=== PATIENT | female | born 1930 | race Caucasian/White ===

== ENCOUNTER 2016-04-28 18:08 | Emergency (ER) | payer OTHER ==
--- NOTE | 2016-04-28 22:32 | ED NURSING NOTES ---
Clinical Report - Nurses [facility] [address] [place] [address] 04/28/2016 18:08 Patient: TANIYA AUSTIN TRIAGE Triage time 18:20. Acuity: LEVEL 4. Chief Complaint: NAUSEA and DIARRHEA. Alert. No acute distress. AWILDA COMA SCORE: [place] Coma Scale: 15- eyes open spontaneously (4); best verbal response- oriented x 4 (5); best motor response- obeys commands (6). --18:39 Jennifer Abebe R.N. 18:20 04/28/16. BP: 130/60. HR: 59. RR: 18. O2 saturation: 95% on room air. Temp: 98.6 F (oral). Pain level now: 09/26. --18:39 Jennifer Abebe R.N. Weight: 68 kg stated. Height/Length: 64 inches Per Patient. BMI: 25.8. --18:26 Jennifer Abebe R.N. Medications Allopurinol Oral 200 mg, daily. Alphagan P Ophthalmic. --18:34 Jennifer Abebe R.N. Diltiazem HCl Oral 240 mg, daily. Gabapentin Oral 100 mg, at bedtime. Hydrocodone-Acetaminophen Oral 5 mg, as needed. Lasix Oral 40 mg, daily. Latanoprost Ophthalmic (Solution 0.005 %) 1 drop, HS (both eyes). Levothyroxine Sodium Oral 137mcg, daily. Loperamide HCl Oral 2 mg, as needed. Loratadine Oral 10 mg, daily. Losartan Potassium Oral 100 mg, daily. --18:34 Jennifer Abebe R.N. MetFORMIN HCl Oral (Tablet 500 mg), daily. Metoprolol Tartrate Oral 100 mg, 2 times daily. Omeprazole Oral 20 mg, daily. PredniSONE Oral 2.5 mg, daily. Probiotic Daily Oral. --18:34 Jennifer Abebe R.N. MetFORMIN HCl Oral 500 mg, 2x a day. --18:34 Jennifer Abebe R.N. Sertraline HCl Oral (Tablet 100 mg) 1 tablet, daily. --18:35 Jennifer Abebe R.N. Atorvastatin Calcium Oral (Tablet 40 mg), daily. --18:35 Jennifer Abebe R.N. Acetaminophen Oral 325 mg, PRN. --18:36 Jennifer Abebe R.N. Antacid Anti-Gas Oral (Suspension 200-200-20 mg/5mL) 30 ml, as needed. --18:37 Jennifer Abebe R.N. Bisac-Evac Rectal (Suppository 10 mg), as needed. --18:38 Jennifer Abebe R.N. Milk of Magnesia Oral 30 ml, as needed. --18:38 Jennifer Abebe R.N. Pepto-Bismol Oral, PRN (liquid or chews). --18:39 Jennifer Abebe R.N. Allergies Codeine. Colchicine. GlipiZIDE. HCTZ. LIsinopril. Methotrexate. Sulfa Antibiotics. --18:22 Jennifer Abebe R.N. History Arrived by private vehicle. Historian: patient. Accompanied by family. Primary physician (Cesar). Onset. (about 3 days). ( recurrent issue for about 3 years, states her doctor sent her to get "fluids" so she doesn't dehydrate). SOCIAL HX: Smoker- current status unknown (no). No alcohol use or drug use. LEARNING NEEDS ASSESSMENT: The learning needs assessment revealed no barriers. FALL RISK ASSESSMENT: Fall risk assessment completed. Risk factors identified include patient impairment of mobility. Fall interventions initiated. Patient placed in wheelchair. FUNCTIONAL ASSESSMENT: Functional assessment performed: requires assistance with the activities of daily living; uses walker- this mobility impairment is an ongoing problem. --18:39 Jennifer Abebe R.N. PROBLEMS: Back Pain. Heart Disease. Ckd. Meniere's Syndrome. Lichen sclerosus et atrophicus. Anxiety Reaction. Depression. Adenomas. Spinal Stenosis. Nephrolithiasis. Diabetes Mellitus Type 2. Hypertension. Coronary Artery Disease. --18:23 Jennifer Abebe R.N. ADDITIONAL SURGERIES: Cholecystectomy. Sinus Surgery. --18:23 Jennifer Abebe R.N. Assessment GENERAL / NEURO / PSYCH: Alert. Appears in no acute distress. Patient appears calm and cooperative. RESPIRATORY: Respirations not labored. SKIN: Skin is warm and dry. --18:39 Jennifer Abebe R.N. Interventions ID and allergy band on patient. To waiting room. --18:39 Jennifer Abebe R.N. PHYSICAL ASSESSMENT Ambulatory to room. GENERAL / NEURO / PSYCH: Oriented X 4. Appears in no acute distress. RESPIRATORY: Respirations not labored. CVS: Capillary refill less than 2 seconds. SKIN: Skin is warm and dry. --22:49 Connie Esquivel R.N. GI / : The patient has had nausea (resolved). Abdomen soft. --22:50 Connie Esquivel R.N. NURSING PROGRESS NOTES 20:15 04/28/16. BP: 148/50. HR: 86. RR: 18. O2 saturation: 100%. --20:17 Connie Esquivel R.N. 19:48 04/28/2016 Started bag #1 1000 mL IV Fluids IV NS (Saline); at 1000 mL/hr over 1 hour(s) via site #1. Completed per protocol. --20:44 Connie Esquivel R.N. 20:40 04/28/2016 Site #1 started via IV in the left antecubital space with an 20g angiocath; one attempt. Blood drawn: rainbow set. Labeled in the presence of the patient and sent to the lab. Saline lock flushed with 5 mL saline. --20:44 Connie Esquivel R.N. ( Pt assisted to restroom in by [employer], pt assisted in restroom for a clean catch specimen by pt's caregiver). --20:54 Milo Harrison 21:00 04/28/2016 IV Fluids IV NS Discontinued: bag #1 infused. Total amount infused: 1000 mL. --22:27 Connie Esquivel R.N. DISPOSITION / DISCHARGE Condition at departure: improved and stable. No learning barriers present. Reviewed medication(s). Written instructions provided in Guamanian. Caregiver verbalized understanding. The patient was discharged by the physician. She was discharged home. She left the Emergency Department ambulatory and via private vehicle. --22:51 Connie Esquivel R.N. 22:50 04/28/16. BP: 133/49. HR: 62. RR: 18. O2 saturation: 96%. Pain level now 0/10. --22:51 Connie Esquivel R.N. Departure time: 22:38 Apr 28 2016. --23:02 Connie Esquivel R.N. Locked/Released at 04/28/2016 23:02 by Connie Esquivel R.N.
--- NOTE | 2016-04-28 22:32 | ED ORDER SUMMARY ---
..... Patient: TANIYA AUSTIN OrderSheet [facility] VisitID: [id number] [address] [place] [address] 85y, F Registration Date/Time: 04/28/2016 ORDER SHEET Weight: 68.0 kg (stated) Allergies: Codeine, Colchicine, GlipiZIDE, HCTZ, LIsinopril, Methotrexate, Sulfa Antibiotics GENERAL ORDERS: CBC w Diff Urgent (20:31 04/28/2016 Fasutino Doan) (Ack 20:32 [facility] Electrical Maintenance Worker) (20:44 SBalde R.N.) CMP Urgent (20:31 04/28/2016 Faustino Doan) (Ack 20:32 [facility] Electrical Maintenance Worker) (20:44 SBalde R.N.) UA-Culture if indicated Urgent (20:31 04/28/2016 Faustino Doan) (Ack 20:32 [facility] Electrical Maintenance Worker) (21:08 SBalde R.N.) MEDICATION ORDERS: Bentyl PO 20 mg (NOW) (20:49 04/28/2016 Faustino Doan) (Ack 21:21 SBalde R.N.) IV FLUIDS: IV NS : initial bolus none -, then 1000 mL/hr for X1 (NOW) (20:30 04/28/2016 Faustino Doan) (20:44 SBalde R.N.) Zofran IV 4 mg (NOW) (20:49 04/28/2016 Faustino Doan) (Ack 21:21 SBalde R.N.) ORDER SHEET NOTES: [Electronically signed by Connie Esquivel R.N. (23:04/28/2016)] [Electronically signed by Javid Haro MD (10:05 04/30/2016)] [Electronically locked/signed by Connie Esquivel R.N. (23:04/28/2016)]
--- NOTE | 2016-04-28 22:32 | ED ORDER SUMMARY ---
..... Patient: TANIYA AUSTIN OrderSheet [facility] VisitID: [id number] [address] [place] [address] 85y, F Registration Date/Time: 04/28/2016 ORDER SHEET Weight: 68.0 kg (stated) Allergies: Codeine, Colchicine, GlipiZIDE, HCTZ, LIsinopril, Methotrexate, Sulfa Antibiotics GENERAL ORDERS: CBC w Diff Urgent (20:31 04/28/2016 Faustino Doan) (Ack 20:32 [facility] Deckhand) (20:44 SBalde R.N.) CMP Urgent (20:31 04/28/2016 Faustino Doan) (Ack 20:32 [facility] Deckhand) (20:44 SBalde R.N.) UA-Culture if indicated Urgent (20:31 04/28/2016 Faustino Doan) (Ack 20:32 [facility] Deckhand) (21:08 SBalde R.N.) MEDICATION ORDERS: Bentyl PO 20 mg (NOW) (20:49 04/28/2016 Faustino Doan) (Ack 21:21 SBalde R.N.) IV FLUIDS: IV NS : initial bolus none -, then 1000 mL/hr for X1 (NOW) (20:30 04/28/2016 Faustino Doan) (20:44 SBalde R.N.) Zofran IV 4 mg (NOW) (20:49 04/28/2016 Faustino Doan) (Ack 21:21 SBalde R.N.) ORDER SHEET NOTES: [Electronically signed by Connie Esquivel R.N. (23:04/28/2016)] [Electronically signed by Javid Haro MD (10:05 04/30/2016)] [Electronically locked/signed by Connie Esquivel R.N. (23:04/28/2016)]
--- NOTE | 2016-04-28 22:32 | ED CLINICAL REPORT ---
Clinical Report - Physicians/Mid Levels [facility] [address] [place] [address] 04/28/2016 18:08 Patient: TANIYA AUSTIN Time Seen: 20:30; initial patient contact. Arrived- By private vehicle. Historian- patient. CPT: ER phys charges level 4 (#002093). HISTORY OF PRESENT ILLNESS Chief Complaint: DIARRHEA. This started about 3 days ago and is still present (persistent). It was abrupt in onset. The patient has had nausea and abdominal pain. No vomiting, black stools or bloody stools. She has had moderate diarrhea. This has occurred several times. It has been watery. No bloody diarrhea. Has not recently been on antibiotics. The illness is described as moderate. Similar symptoms previously: None. Recent medical care: Not recently seen/assessed. REVIEW OF SYSTEMS No fever, difficulty with urination, dark urine, dizziness or sore throat. No cough, chest pain, difficulty breathing, excessive urination or skin rash. No fainting episodes. All systems otherwise negative, except as recorded above. PAST HISTORY Heart Disease. Diabetes Mellitus. Ckd. Meniere's Syndrome. Lichen sclerosus et atrophicus. Anxiety Reaction. Depression. Adenomas. Spinal Stenosis. Nephrolithiasis. Diabetes Mellitus Type 2. Hypertension. Coronary Artery Disease. Additional Surgeries: Cholecystectomy. Sinus Surgery. Allergies: Codei. Codeine. Colchicine. GlipiZIDE. HCTZ. LIsinopril. Methotrexate. Sulfa Antibiotics. SOCIAL HISTORY Never smoker. No alcohol use or drug use. ADDITIONAL NOTES The nursing notes have been reviewed with agreement regarding the chief complaint, PMH and patient medications and allergies. PHYSICAL EXAM Vital Signs: 04/28/2016 18:20 BP: 130/60. HR: 59. RR: 18. O2 saturation: 95%. Temp: 98.6 F. Pain level now: 7/10. Have been reviewed. Blood pressure normal. Bradycardic. Respiratory rate normal. Temperature normal. Oxygen saturation normal. Appearance: Alert. Oriented X3. No acute distress. Eyes: Eyes normal inspection. ENT: Dry mucous membranes present. CVS: Normal heart rate and rhythm. Heart sounds normal. Respiratory: No respiratory distress. Breath sounds normal. Abdomen: Soft. Mild tenderness diffusely. No guarding. Bowel sounds normal. No organomegaly. No mass. Back: No CVA tenderness. Skin: Poor skin turgor. Extremities: No lower extremity edema. Neuro: Oriented X 3. LABS, X-RAYS, AND EKG Laboratory Tests: UA-Culture if indicated: (NEFTALY: 04/28/2016 21:00) ( [facility] 04/28/2016 21:11) IP Test Result Flag Units (Reference) URINE COLOR LIGHT YELLOW URINE APPEARANCE CLEAR URINE GLUCOSE NEGATIVE (NEGATIVE) URINE BILIRUBIN NEGATIVE (NEGATIVE) URINE KETONE NEGATIVE (NEGATIVE) URINE SPECIFIC GRAVITY <= 1.005 L (1.010-1.030) URINE PH 5.5 (5.0-8.0) URINE PROTEIN TRACE (NEGATIVE) URINE UROBILINOGEN 0.2 EU/dL (0.2-1.0) URINE NITRITE NEGATIVE (NEGATIVE) URINE BLOOD NEGATIVE (NEGATIVE) URINE LEUK ESTERASE NEGATIVE (NEGATIVE) CBC w Diff: (NEFTALY: 04/28/2016 19:43) ( [facility] 04/28/2016 20:52) Final results Test Result Flag Units (Reference) WHITE BLOOD COUNT 14.6 H K/uL (4.5-11.5) RED BLOOD COUNT 3.77 L M/uL (4.00-5.20) HEMOGLOBIN 10.0 L gm/dL (12.0-16.0) HEMATOCRIT 30.5 L % (36.0-46.0) MEAN CELL VOLUME 81 fL (80-100) MEAN CORPUSCULAR HGB 26 pg (26-34) MEAN CORPUSCULAR HGB CONC 33 g/dL (31-37) RED CELL DISTRIBUTION WIDTH 16.7 H % (11.6-14.8) PLATELET COUNT 331 K/uL (150-400) NEUTROPHIL % 74.2 % (50-75) LYMPH % 18.8 L % (25-40) MONO % 3.8 % (3-14) EOSINOPHIL % 2.9 % (0-4) BASOPHIL % 0.3 % (0-2) CMP: (NEFTALY: 04/28/2016 19:43) ( MsgRcvd 04/28/2016 21:10) Final results Test Result Flag Units (Reference) GLUCOSE 242 H mg/dL (70-110) BUN 42 H mg/dL (7-18) CREATININE 1.5 H mg/dL (0.6-1.3) Estimated GFR 34.91 mL/min Estimated GFR- 42.31 mL/min Note: Persistent reduction over 3 months in eGFR<60 mL/min/1.73 m2 defines CKD. Patients with eGFR values>=60 mL/min/1.73 m2 may also have CKD if evidence ofpersistent proteinuria. Additional information may be foundat www.kidney.org. SODIUM 141 mmol/L (136-145) POTASSIUM 4.2 mmol/L (3.5-5.1) CHLORIDE 104 mmol/L (98-107) CARBON DIOXIDE 24 mmol/L (21-32) CALCIUM 9.1 mg/dL (8.5-10.1) TOTAL PROTEIN 6.8 g/dL (6.4-8.2) ALBUMIN 3.2 L g/dL (3.3-5.0) BILIRUBIN, TOTAL 0.2 mg/dL (0.0-1.0) ALKALINE PHOSPHATASE 89 U/L (46-116) AST (SGOT) 12 L U/L (15-37) ALT (SGPT) 22 U/L (12-78) . PROGRESS AND PROCEDURES Course of Care: IV NS 1 liter 22:30 04/28/16. patient indicates she feels better and wants to go home. She has some nausea medicine at home. Discussed stopping her Lasix until her illness is over. Patient is stable. Symptoms better. Patient/family counseled. Disposition: Discharged. Condition: stable and improved. CLINICAL IMPRESSION Acute norovirus gastroenteritis. Moderate dehydration INSTRUCTIONS Drink plenty of fluids. (Stop lasix until illness is over.). Warnings: Further evaluation is necessary. GENERAL WARNINGS: Return or contact your physician immediately if your condition worsens or changes unexpectedly, if not improving as expected, or if other problems arise. Your Current Medications: STOP TAKING THE FOLLOWING MEDICATIONS: Lasix Oral : 40 mg daily. CONTINUE TAKING THE FOLLOWING MEDICATIONS: Acetaminophen Oral : 325 mg PRN. Allopurinol Oral : 200 mg daily. Alphagan P Ophthalmic. Antacid Anti-Gas Oral : Suspension 200-200-20 mg/5mL, 30 ml, prn. Atorvastatin Calcium Oral : Tablet 40 mg, daily. Bisac-Evac Rectal : Suppository 10 mg, prn. Diltiazem HCl Oral : 240 mg daily. Gabapentin Oral : 100 mg at bedtime. Hydrocodone-Acetaminophen Oral : 5 mg, prn. Latanoprost Ophthalmic : Solution 0.005 %, 1 drop HS, both eyes. Levothyroxine Sodium Oral : 137mcg daily. Loperamide HCl Oral : 2 mg, prn. Loratadine Oral : 10 mg daily. Losartan Potassium Oral : 100 mg daily. MetFORMIN HCl Oral : 500 mg 2x a day. MetFORMIN HCl Oral : Tablet 500 mg, daily. Metoprolol Tartrate Oral : 100 mg 2 times daily. Milk of Magnesia Oral : 30 ml, prn. Omeprazole Oral : 20 mg daily. Pepto-Bismol Oral : PRN, liquid or chews. PredniSONE Oral : 2.5 mg daily. Probiotic Daily Oral. Sertraline HCl Oral : Tablet 100 mg, 1 tablet daily. Prescription Medications: Zofran (orally disintegrating tablets) 4 mg: take 1 orally every 4 hours as needed for nausea and vomiting. Dispense ten (10). No refill. Substitution is permissible. Follow-up: Follow up with your doctor in two days if not better. Understanding of the discharge instructions verbalized by patient and family. (Electronically signed by Javid Haro MD 04/30/2016 10:05)
--- NOTE | 2016-04-30 10:06 | ED MED RECONCILIATION SUMMARY ---
Patient: TANIYA AUSTIN Medication Reconciliation Report [facility] VisitID: [id number] [address] [place] [address] 85y, F Registration Date/Time: 04/28/2016 Weight: 68.0 kg Height/Length: 64 in. BMI: 25.8 ALLERGIES: Codeine, Colchicine, GlipiZIDE, HCTZ, LIsinopril, Methotrexate, Sulfa Antibiotics The patient's Home Medications are listed below: STOP TAKING THE FOLLOWING MEDICATIONS: Lasix Oral 40 mg, daily CONTINUE TAKING THE FOLLOWING MEDICATIONS: Acetaminophen Oral 325 mg, PRN Allopurinol Oral 200 mg, daily Alphagan P Ophthalmic Antacid Anti-Gas Oral (200-200-20 mg/5mL) 30 ml Atorvastatin Calcium Oral (40 mg), daily Bisac-Evac Rectal (10 mg) Diltiazem HCl Oral 240 mg, daily Gabapentin Oral 100 mg, at bedtime Hydrocodone-Acetaminophen Oral 5 mg Latanoprost Ophthalmic (0.005 %) 1 drop, HS, both eyes Levothyroxine Sodium Oral 137mcg, daily Loperamide HCl Oral 2 mg Loratadine Oral 10 mg, daily Losartan Potassium Oral 100 mg, daily MetFORMIN HCl Oral 500 mg, 2x a day MetFORMIN HCl Oral (500 mg), daily Metoprolol Tartrate Oral 100 mg, 2 times daily Milk of Magnesia Oral 30 ml Omeprazole Oral 20 mg, daily Pepto-Bismol Oral, PRN, liquid or chews PredniSONE Oral 2.5 mg, daily Probiotic Daily Oral Sertraline HCl Oral (100 mg) 1 tablet, daily The source(s) of the original Home Medication information: Not obtained. The following Medications were given to the patient in the Emergency Department: IV NS IV Fluids bolus 0, then 1000 mL/hr, administered: 04/28/2016 7:48:00 PM The following Medications were prescribed to the patient: Zofran (orally disintegrating tablets) 4 mg: take 1 orally every 4 hours as needed for nausea and vomiting. Dispense ten (10). No refill. Substitution is permissible. -- Javid Haro MD
--- NOTE | 2016-04-30 10:06 | ED MED RECONCILIATION SUMMARY ---
Patient: TANIYA AUSTIN Medication Reconciliation Report [facility] VisitID: [id number] [address] [place] [address] 85y, F Registration Date/Time: 04/28/2016 Weight: 68.0 kg Height/Length: 64 in. BMI: 25.8 ALLERGIES: Codeine, Colchicine, GlipiZIDE, HCTZ, LIsinopril, Methotrexate, Sulfa Antibiotics The patient's Home Medications are listed below: STOP TAKING THE FOLLOWING MEDICATIONS: Lasix Oral 40 mg, daily CONTINUE TAKING THE FOLLOWING MEDICATIONS: Acetaminophen Oral 325 mg, PRN Allopurinol Oral 200 mg, daily Alphagan P Ophthalmic Antacid Anti-Gas Oral (200-200-20 mg/5mL) 30 ml Atorvastatin Calcium Oral (40 mg), daily Bisac-Evac Rectal (10 mg) Diltiazem HCl Oral 240 mg, daily Gabapentin Oral 100 mg, at bedtime Hydrocodone-Acetaminophen Oral 5 mg Latanoprost Ophthalmic (0.005 %) 1 drop, HS, both eyes Levothyroxine Sodium Oral 137mcg, daily Loperamide HCl Oral 2 mg Loratadine Oral 10 mg, daily Losartan Potassium Oral 100 mg, daily MetFORMIN HCl Oral 500 mg, 2x a day MetFORMIN HCl Oral (500 mg), daily Metoprolol Tartrate Oral 100 mg, 2 times daily Milk of Magnesia Oral 30 ml Omeprazole Oral 20 mg, daily Pepto-Bismol Oral, PRN, liquid or chews PredniSONE Oral 2.5 mg, daily Probiotic Daily Oral Sertraline HCl Oral (100 mg) 1 tablet, daily The source(s) of the original Home Medication information: Not obtained. The following Medications were given to the patient in the Emergency Department: IV NS IV Fluids bolus 0, then 1000 mL/hr, administered: 04/28/2016 7:48:00 PM The following Medications were prescribed to the patient: Zofran (orally disintegrating tablets) 4 mg: take 1 orally every 4 hours as needed for nausea and vomiting. Dispense ten (10). No refill. Substitution is permissible. -- Javid Haro MD
--- NOTE | 2016-04-30 10:06 | ED MAR SUMMARY ---
..... Medication Administration Record [facility] [address] [place] [address] Patient: TANIYA AUSTIN Visit ID: [id number] 85y, F Weight: 68.0 kg Height/Length: 64 in BMI: 25.8 ALLERGIES: Codeine, Colchicine, GlipiZIDE, HCTZ, LIsinopril, Methotrexate, Sulfa Antibiotics Start 19:48 04/28/2016 Connie Esquivel R.N., Stop 21:00 04/28/2016 Connie Esquivel R.N. Medication Administered: IV NS (SALINE), Dose: IV Fluids over 1 hour(s), Rate: 1000 mL/hr, Dispensed: 1000 mL bag, Site: #1. Medication Ordered: IV NS : initial bolus none -, then 1000 mL/hr for X1 (NOW).
--- NOTE | 2016-04-30 10:06 | ED MAR SUMMARY ---
..... Medication Administration Record [facility] [address] [place] [address] Patient: TANIYA AUSTIN Visit ID: [id number] 85y, F Weight: 68.0 kg Height/Length: 64 in BMI: 25.8 ALLERGIES: Codeine, Colchicine, GlipiZIDE, HCTZ, LIsinopril, Methotrexate, Sulfa Antibiotics Start 19:48 04/28/2016 Connie Esquivel R.N., Stop 21:00 04/28/2016 Connie Esquivel R.N. Medication Administered: IV NS (SALINE), Dose: IV Fluids over 1 hour(s), Rate: 1000 mL/hr, Dispensed: 1000 mL bag, Site: #1. Medication Ordered: IV NS : initial bolus none -, then 1000 mL/hr for X1 (NOW).
--- NOTE | 2016-04-30 10:06 | ED DISCHARGE INSTRUCTIONS ---
Patient: TANIYA AUSTIN General Instructions [facility] VisitID: [id number] [address] [place] [address] 85y, F Registration Date/Time: 04/28/2016 Acute norovirus gastroenteritis. Moderate dehydration INSTRUCTIONS Drink plenty of fluids. (Stop lasix until illness is over.). Warnings: Further evaluation is necessary. GENERAL WARNINGS: Return or contact your physician immediately if your condition worsens or changes unexpectedly, if not improving as expected, or if other problems arise. Your Current Medications: STOP TAKING THE FOLLOWING MEDICATIONS: Lasix Oral : 40 mg daily. CONTINUE TAKING THE FOLLOWING MEDICATIONS: Acetaminophen Oral : 325 mg PRN. Allopurinol Oral : 200 mg daily. Alphagan P Ophthalmic. Antacid Anti-Gas Oral : Suspension 200-200-20 mg/5mL, 30 ml, prn. Atorvastatin Calcium Oral : Tablet 40 mg, daily. Bisac-Evac Rectal : Suppository 10 mg, prn. Diltiazem HCl Oral : 240 mg daily. Gabapentin Oral : 100 mg at bedtime. Hydrocodone-Acetaminophen Oral : 5 mg, prn. Latanoprost Ophthalmic : Solution 0.005 %, 1 drop HS, both eyes. Levothyroxine Sodium Oral : 137mcg daily. Loperamide HCl Oral : 2 mg, prn. Loratadine Oral : 10 mg daily. Losartan Potassium Oral : 100 mg daily. MetFORMIN HCl Oral : 500 mg 2x a day. MetFORMIN HCl Oral : Tablet 500 mg, daily. Metoprolol Tartrate Oral : 100 mg 2 times daily. Milk of Magnesia Oral : 30 ml, prn. Omeprazole Oral : 20 mg daily. Pepto-Bismol Oral : PRN, liquid or chews. PredniSONE Oral : 2.5 mg daily. Probiotic Daily Oral. Sertraline HCl Oral : Tablet 100 mg, 1 tablet daily. Prescription Medications: Zofran (orally disintegrating tablets) 4 mg: take 1 orally every 4 hours as needed for nausea and vomiting. Dispense ten (10). No refill. Substitution is permissible. Follow-up: Follow up with your doctor in two days if not better. Understanding of the discharge instructions verbalized by patient and family. ADDITIONAL INFORMATION Viral Gastroenteritis (6Yr-Adult) Gastroenteritis is another name for thestomach flu.It is most often caused by a virus that affects the stomach and intestinal tract. Symptoms include stomach cramping and fever, vomiting and/or diarrhea, and can last from 2 to 7 days. The danger from repeated vomiting or diarrhea is dehydration. This is the loss of too much water and minerals from the body. When this occurs, body fluids must be replaced. Antibiotics are not effective for this illness, but simple home treatment will be helpful. Home Care If symptoms are severe, rest at home for the next 24 hours. Avoid tobacco, caffeine, and alcohol use, which can worsen symptoms. Acetaminophen (Tylenol) or ibuprofen (Motrin, Advil) may be usedfor fever or pain unless another medication was prescribed. NOTE: If you have chronic liver or kidney disease or ever had a stomach ulcer or GI bleeding, talk with your doctor before using these medicines. Aspirin should never be used in anyone under 18 years of age who is ill with a fever. It may cause severe liver damage. If medicines for diarrhea or vomiting were prescribed, be sure they are takenonly as directed. If vomiting, drink small amounts of clear fluids (such as water, sports drinks, clear sodas) at frequent intervals to prevent dehydration. Start with 1 to 2 tablespoons every 10 minutes. Once vomiting stops, follow these guidelines: During The First 12 To 24 Hours follow the diet below: Beverages: Sport drinks like Gatorade, soft drinks without caffeine; kvng martha, mineral water (plain or flavored), decaffeinated tea and coffee. Soups: Clear broth, consomm and bouillon Desserts: Plain gelatin (Jell-O), Popsicles and fruit juice bars. During The Next 24 Hours you may add the following to the above: Hot cereal, plain toast, bread, rolls, crackers Plain noodles, rice, mashed potatoes, chicken noodle or rice soup Unsweetened canned fruit (avoid pineapple), bananas Limit fat intake to less than 15 grams per day by avoiding margarine, butter, oils, mayonnaise, sauces, gravies, fried foods, peanut butter, meat, poultry, and fish. Limit fiber; avoid raw or cooked vegetables, fresh fruits (except bananas), and bran cereals. Limit caffeine and chocolate. Do not use spices or seasonings except salt. During The Next 24 Hours The patient can gradually resume a normal diet as symptoms lessen. Preventing Spread Hand washing with soap and water is the best way to prevent the spread of viruses. Caregivers should wash their hands before andafter touching the sick person. The sick person, as well as everyone in the family,should wash their hands after using the toilet and before meals. Clean the toilet after each use. People with diarrhea should not prepare food for others. If you are preparing your own foods, wash your hands before and after. Follow Up with your doctor as advised. Call your doctor if you are not improving over the next 2 to 3 days. If a stool (diarrhea) sample was taken, you may call in 2 days (or as directed) for the results. Get Prompt Medical Attention if any of the following occur: Increasing abdominal pain Continued vomiting (unable to keep liquids down) Frequent diarrhea (more than 5 times a day) Blood in vomit or stool (black or red color) Dark urine, reduced urine output, or extreme thirst Weakness, dizziness, fainting Drowsiness, confusion, stiff neck, or seizure Fever of 100.4F (38C) oral or higher, not better with fever medication New rash Dehydration (Adult) Dehydration occurs when your body loses too much fluid. This may be the result of vomiting a lot or from diarrhea,sweating a lot, or a high fever. It may also happen if you dont drink enough fluid when youre sick. Misuse of diuretics (water pills) can also be a cause. Symptoms include thirst and feeling dizzy, weak, fatigued, or very drowsy. The diet described below is usually enough to treat most cases. Sometimes you may needmedicine. Home Care Follow these guidelines for home care: Drink at least 12 8-ounce glasses of fluid every day to overcome the dehydration. Fluid may include water; orange juice; lemonade; apple, grape, and cranberry juice; clear fruit drinks; electrolyte replacement and sports drinks; and teas and coffee without caffeine. If you have been diagnosed with a kidney disease, ask your doctor how much and what types of fluids you should drink to prevent dehydration. If you have kidney disease, drinking too much fluid can cause it build up in the your body and be dangerous to your health. If you have fever, muscle aching, or headache from a viral syndrome, you may useacetaminophen or ibuprofen, unless another medicine was prescribed for this.If you have chronic liver or kidney disease or ever had a stomach ulcer or GI bleeding, talk with your doctor before using these medicines. Don't take aspirin if you are younger than 18 and are ill with a fever.Aspirin raises the chance forsevere liver injury. Follow-up care Follow up with your health care provider if you don't get better in the next 24 to 48 hours. When to seek medical care Get prompt medical attention if any of theseoccur: Continued vomiting (cant keep liquids down) Frequent diarrhea (more than 5 times a day); blood (red or black color) or mucus in diarrhea Blood in vomit or stool Swollen abdomen or increasing abdominal pain Weakness, dizziness, or fainting Unusually drowsy or confused Reduced urine output or extreme thirst Fever of 100.4 F (38 C) oral or higher that does not get better with fever medication Ondansetron Oral disintegrating tablet What is this medicine? ONDANSETRON (on DEEP se larry) is used to treat nausea and vomiting caused by chemotherapy. It is also used to prevent or treat nausea and vomiting after surgery. How should I use this medicine? These tablets are made to dissolve in the mouth. Do not try to push the tablet through the foil backing. With dry hands, peel away the foil backing and gently remove the tablet. Place the tablet in the mouth and allow it to dissolve, then swallow. While you may take these tablets with water, it is not necessary to do so. Talk to your control engineer regarding the use of this medicine in children. Special care may be needed. What side effects may I notice from receiving this medicine? Side effects that you should report to your doctor or health childcare teacher as soon as possible: allergic reactions like skin rash, itching or hives, swelling of the face, lips, or tongue breathing problems dizziness fast or irregular heartbeat feeling faint or lightheaded, falls fever and chills swelling of the hands and feet tightness in the chest Side effects that usually do not require medical attention (report to your doctor or health childcare teacher if they continue or are bothersome): constipation or diarrhea headache What may interact with this medicine? Do not take this medicine with any of the following medications: -apomorphine -cisapride -dofetilide -dronedarone -pimozide -thioridazine -ziprasidone This medicine may also interact with the following medications: -carbamazepine -phenytoin -rifampicin -tramadol -other medicines that prolong the QT interval (cause an abnormal heart rhythm) What if I miss a dose? If you miss a dose, take it as soon as you can. If it is almost time for your next dose, take only that dose. Do not take double or extra doses. Where should I keep my medicine? Keep out of the reach of children. Store between 2 and 30 degrees C (36 and 86 degrees F). Throw away any unused medicine after the expiration date. What should I tell my health care provider before I take this medicine? They need to know if you have any of these conditions: heart disease history of irregular heartbeat liver disease low levels of magnesium or potassium in the blood an unusual or allergic reaction to ondansetron, granisetron, other medicines, foods, dyes, or preservatives or trying to get breast-feeding What should I watch for while using this medicine? Check with your doctor or health childcare teacher as soon as you can if you have any sign of an allergic reaction. You have been given the following additional information: Gastroenteritis, Viral (6Y-Adult) Dehydration (Adult) Ondansetron Oral disintegrating tablet (Electronically signed by Javid Haro MD 04/30/2016 10:05)
== END 2016-04-28 22:38 | disposition home or self-care (01) ==
LOC: ED SRH 18:08
DX: A08.11 Acute gastroenteropathy due to Norwalk agent (principal); E86.0 Dehydration; I10 Essential (primary) hypertension; I51.9 Heart disease, unspecified; E11.9 Type 2 diabetes mellitus without complications; Z79.84 Long term (current) use of oral hypoglycemic drugs; Z79.891 Long term (current) use of opiate analgesic; Z79.899 Other long term (current) drug therapy; Z79.52 Long term (current) use of systemic steroids; Z88.2 Allergy status to sulfonamides
CPT/HCPCS: 90004; 90100; 95059

== ENCOUNTER 2016-06-23 22:28 | Emergency (ER) | payer OTHER ==
--- NOTE | 2016-06-24 00:04 | DIAGNOSTIC IMAGING REPORT ---
PROCEDURE: CT ABDOMEN/PELVIS W/O CONTRAST INDICATION: Abdominal pain. Elevated white blood count (20,000). Reported history of cholecystectomy. TECHNIQUE: Noncontrast axial images with sagittal and coronal reformations. Intravenous contrast was not utilized due to the patient's compromised renal status of. COMPARISON: None. FINDINGS: ABDOMEN: Gallbladder is not visualized. Liver, spleen, pancreas, and aorta are normal. 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 Right kidney is of normal size (9.5 cm) with 2 small cyst in the lower pole. Left kidney is of normal size (10.2 cm) with a 3.2 cm upper pole cyst. Bowel pattern is normal, including appendix. 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 PELVIS: Marked sigmoid diverticulosis, but no evidence of diverticulitis. Uterus and adnexal regions are normal. No evidence of free fluid. IMPRESSION: 1. Gallbladder is not visualized (consistent with cholecystectomy). 2. 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 3. Marked sigmoid diverticulosis, but no evidence of diverticulitis. 4. Otherwise negative CT abdomen and pelvis. 5. 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 Consider volume depletion. 6. Findings discussed with Dr. Leonard Weston. All CT scans at this facility use dose modulation, iterative reconstruction, and/or weight-based dosing when appropriate to reduce radiation dose to as low as reasonably achievable.
--- NOTE | 2016-06-29 02:44 | ED MED RECONCILIATION SUMMARY ---
Patient: TANIYA AUSTIN Medication Reconciliation Report [facility] VisitID: [id number] [place] [address] 86y, F Registration Date/Time: 06/23/2016 Weight: 68.0 kg Height/Length: 64 in. BMI: 25.8 ALLERGIES: Codeine, Colchicine, GlipiZIDE, HCTZ, LIsinopril, Methotrexate, Sulfa Antibiotics The patient's Home Medications are listed below: CONTINUE TAKING THE FOLLOWING MEDICATIONS: Acetaminophen Oral 325 mg, PRN Allopurinol Oral 200 mg, daily Alphagan P Ophthalmic Antacid Anti-Gas Oral (200-200-20 mg/5mL) 30 ml Atorvastatin Calcium Oral (40 mg), daily Bisac-Evac Rectal (10 mg) Diltiazem HCl Oral 240 mg, daily Gabapentin Oral 100 mg, at bedtime Hydrocodone-Acetaminophen Oral 5 mg Lasix Oral 40 mg, daily Latanoprost Ophthalmic (0.005 %) 1 drop, HS, both eyes Levothyroxine Sodium Oral 112mcg, daily Loperamide HCl Oral 2 mg Loratadine Oral 10 mg, daily Losartan Potassium Oral 100 mg, daily MetFORMIN HCl Oral 500 mg, 2x a day MetFORMIN HCl Oral (500 mg), daily Metoprolol Tartrate Oral 100 mg, 2 times daily Milk of Magnesia Oral 30 ml Omeprazole Oral 20 mg, daily Pepto-Bismol Oral, PRN, liquid or chews PredniSONE Oral 2.5 mg, daily Probiotic Daily Oral Sertraline HCl Oral (100 mg) 1 tablet, daily The source(s) of the original Home Medication information: Not obtained. The following Medications were given to the patient in the Emergency Department: IV NS IV Fluids bolus 0, then 1000 mL/hr, administered: 06/23/2016 10:52:00 PM Zofran [IVP] IVP 4 mg, administered: 06/23/2016 10:51:00 PM GI COCKTAIL WHITE [PO] PO 30 mL, administered: 06/23/2016 11:13:00 PM Pepcid [IVP] IVP 20 mg, administered: 06/23/2016 11:51:00 PM IV NS IV Fluids bolus 0, then 1000 mL/hr, administered: 06/24/2016 12:06:00 AM The following Medications were prescribed to the patient: Zofran (orally disintegrating tablets) 4 mg: take 1 orally every 8 hours as needed for nausea and vomiting. Dispense ten (10). No refill. Substitution is permissible. -- Leonard Weston Dr. Pepcid 20 mg: take 1 orally every 12 hours as needed for indigestion, upset stomach or heartburn. Dispense thirty (30). No refills. Substitution is permissible. -- Leonard Weston Dr.
--- NOTE | 2016-06-29 02:44 | ED MAR SUMMARY ---
..... Medication Administration Record [address] [place] [address] Patient: TANIYA AUSTIN Visit ID: [id number] 86y, F Weight: 68.0 kg Height/Length: 64 in BMI: 25.8 ALLERGIES: Codeine, Colchicine, GlipiZIDE, HCTZ, LIsinopril, Methotrexate, Sulfa Antibiotics Given 22:51 06/23/2016 Gaudencio Julien R.N. Medication Administered: ZOFRAN [IVP] (ONDANSETRON HCL), Dose: 4 mg IVP over 1 minute(s), Site: #1 left AC. Medication Ordered: Zofran IV 4 mg (NOW). Start 22:52 06/23/2016 Gaudencio Julien R.N., Stop 23:52 06/23/2016 Gaudencio Julien R.N. Medication Administered: IV NS (SALINE), Dose: IV Fluids over 1 hour(s), Rate: 1000 mL/hr, Dispensed: 1000 mL bag, Site: #1 left AC. Medication Ordered: IV NS : initial bolus 1000 mL (1000 mL/hr), then none - for X1 (NOW). Given 23:13 06/23/2016 Gaudencio Julien R.N. Medication Administered: GI COCKTAIL WHITE [PO] (SIMETHICONE), Dose: 30 mL Oral Suspension PO. Medication Ordered: GI Cocktail WHITE PO 30 mL (NOW). Given 23:51 06/23/2016 Gaudencio Julien R.N. Medication Administered: PEPCID [IVP], Dose: 20 mg IVP over 15 minute(s), Site: #1 left AC. Medication Ordered: Pepcid IV 20 mg/50mL (NOW). Start 00:06 06/24/2016 Gaudencio Julien R.N., Stop 01:10 06/24/2016 Gaudencio Julien R.N. Medication Administered: IV NS (SALINE), Dose: IV Fluids over 1 hour(s), Rate: 1000 mL/hr, Dispensed: 1000 mL bag, Site: #1 left AC. Medication Ordered: IV NS : initial bolus 1000 mL (1000 mL/hr), then none - for X1 (NOW).
--- NOTE | 2016-06-29 02:44 | ED DISCHARGE INSTRUCTIONS ---
Patient: TANIYA AUSTIN General Instructions Formerly [facility] VisitID: [id number] [place] [address] 86y, F Registration Date/Time: 06/23/2016 Acute epigastric abdominal pain. 06/24/2016 00:12 BP: 157/68. HR: 81. RR: 20. O2 saturation: 96%. Hypertensive. Oxygen saturation normal. Acute gastritis (acute). acute leukocytosis. INSTRUCTIONS (hold iron pill until your pain resolves). Warnings: GENERAL WARNINGS: Return or contact your physician immediately if your condition worsens or changes unexpectedly, if not improving as expected, or if other problems arise. SPECIFICALLY, return if you develop pain, fever, vomiting, the inability to keep fluids down, blood in vomitus, blood in diarrhea, fainting or lightheadedness. Your Current Medications: CONTINUE TAKING THE FOLLOWING MEDICATIONS: Acetaminophen Oral : 325 mg PRN. Allopurinol Oral : 200 mg daily. Alphagan P Ophthalmic. Antacid Anti-Gas Oral : Suspension 200-200-20 mg/5mL, 30 ml, prn. Atorvastatin Calcium Oral : Tablet 40 mg, daily. Bisac-Evac Rectal : Suppository 10 mg, prn. Diltiazem HCl Oral : 240 mg daily. Gabapentin Oral : 100 mg at bedtime. Hydrocodone-Acetaminophen Oral : 5 mg, prn. Lasix Oral : 40 mg daily. Latanoprost Ophthalmic : Solution 0.005 %, 1 drop HS, both eyes. Levothyroxine Sodium Oral : 112mcg daily. Loperamide HCl Oral : 2 mg, prn. Loratadine Oral : 10 mg daily. Losartan Potassium Oral : 100 mg daily. MetFORMIN HCl Oral : 500 mg 2x a day. MetFORMIN HCl Oral : Tablet 500 mg, daily. Metoprolol Tartrate Oral : 100 mg 2 times daily. Milk of Magnesia Oral : 30 ml, prn. Omeprazole Oral : 20 mg daily. Pepto-Bismol Oral : PRN, liquid or chews. PredniSONE Oral : 2.5 mg daily. Probiotic Daily Oral. Sertraline HCl Oral : Tablet 100 mg, 1 tablet daily. Prescription Medications: Zofran (orally disintegrating tablets) 4 mg: take 1 orally every 8 hours as needed for nausea and vomiting. Dispense ten (10). No refill. Substitution is permissible. Pepcid 20 mg: take 1 orally every 12 hours as needed for indigestion, upset stomach or heartburn. Dispense thirty (30). No refills. Substitution is permissible. Follow-up: Return to the emergency department as needed. Follow up with your doctor in three days. Reason for referral: recheck today's concerns. Screening today revealed the patient's blood pressure to be in the normal range. The patient should follow up with a primary care provider for blood pressure management. Understanding of the discharge instructions verbalized by patient. ADDITIONAL INFORMATION Abdominal Pain, Unknown Cause (Female) The exact cause of your abdominal (stomach) pain is not certain. This does not mean that this is something to worry about, or the right tests were not done. Everyone likes to know the exact cause of the problem, but sometimes with abdominal pain, there is no clear-cut cause, and this could be a good thing. The good news is that your symptoms can be treated, and you will feel better. Your condition does not seem serious now; however, sometimes the signs of a serious problem may take more time to appear. For this reason,it is important for you to watch for any new symptoms, problems,or worsening of your condition. Over the next few days, the abdominal pain may come and go, or be continuous. Other common symptoms can include nausea and vomiting. Sometimes it can be difficult to tell if you feel nauseous, you may just feel bad and not associate that feeling with nausea. Constipation, diarrhea, and a fever may go along with the pain. The pain may continue even if treated correctly over the following days. Depending on how things go, sometimes the cause can become clear and may require further or different treatment. Additional evaluations, medications, or tests may be needed. Home care Your health care provider may prescribe medications for pain, symptoms, or an infection. Follow the health care provider's instructions for taking these medications. General care Rest until your next exam. No strenuous activities. Try to find positions that ease discomfort. A small pillow placed on the abdomen may help relieve pain. Something warm on your abdomen (such as a heating pad) may help, but be careful not to burn yourself. Diet Do not force yourself to eat, especially if having cramps, vomiting, or diarrhea. Water is important so you do not get dehydrated. Soup may also be good. Sports drinks may also help, especially if they are not too acidic. Make sure you don't drink sugary drinks as this can make things worse. Take liquids in small amounts. Do not guzzle them. Caffeine sometimes makes the pain and cramping worse. Avoid dairy products if you have vomiting or diarrhea. Don't eat large amounts at a time. Wait a few minutes between bites. Eat a diet low in fiber (called a low-residue diet). Foods allowed include refined breads, white rice, fruit and vegetable juices without pulp, tender meats. These foods will pass more easily through the intestine. Avoid whole-grain foods, whole fruits and vegetables, meats, seeds and nuts, fried or fatty foods, dairy, alcohol and spicy foods until your symptoms go away. Follow-up care Follow up with your health care provider as instructed, or if your pain does not begin to improve in the next 24 hours. When to seek medical care Seek prompt medical care if any of the following occur: Pain gets worse or moves to the right lower abdomen New or worsening vomiting or diarrhea Swelling of the abdomen Unable to pass stool for more than three days Fever of 100.4F (38C) or higher, or as directed by your healthcare provider. Blood in vomit or bowel movements (dark red or black color) Jaundice (yellow color of eyes and skin) Weakness, dizziness Chest, arm, back, neck or jaw pain Unexpected vaginal bleeding or missed period Call 911 Call emergency services if any of the following occur: Trouble breathing Confusion Fainting or loss of consciousness Rapid heart rate Seizure Gastritis Versus Ulcer (No Antibiotic Tx) The symptoms of gastritis and peptic ulcer are very similar. Both can cause a dull ache or burning pain in the upper abdomen. Other symptoms include nausea, vomiting, loss of appetite, and belching or bloating. Blood in the vomit or stools (red or black) is a sign of bleeding in the stomach. This requires immediate medical attention. A Peptic Ulcer is an open sore in the lining of the stomach or duodenum (upper intestine). The most common cause of peptic ulcer disease is a bacterial infection (H pylori) in the stomach. Another common cause is taking anti-inflammatory medications (such as ibuprofen, prednisone, and aspirin). Gastritis is an irritation of the stomach lining. It can be acute (recent) or chronic (lasting a long time). Gastritis can be caused by overuse of alcohol or anti-inflammatory medications (such as aspirin, ibuprofen, prednisone). H pyloriinfection can also cause chronic gastritis. Tests for H pyloriare used to screen for bacterial infection. If no infection is found, ulcer and gastritis can be treated by stopping the cause, such as anti-inflammatory medications, alcohol, caffeine, and tobacco, and treating with antacids plus an acid flaco medication. If H pylori infection is found, antibiotics will be prescribed along with an acid flaco. Persons 55 years and older may undergo other tests before treatment is started. Two common tests are used to evaluate your symptoms. An upper GI series is an x-ray taken after you drink a chalky liquid called barium. This coats the stomach and allows an ulcer to show up on the x-ray. Another test is called endoscopy during which a long thin tube called an endoscope is passed down your throat to the stomach. A camera at the end of the scope allows the doctor to view inside the stomach to check the cause of your symptoms. Home Care: Take the prescribed acid flaco medication for the full course of treatment even if you begin to feel better sooner. This medication can take up to several days to fully control your symptoms. If you cant afford the prescribed medication, you can try [id number] acid blockers, such as Pepcid AC, Tagamet, Zantac, or Aciphex. If these do not relieve your symptoms, a stronger acid-flaco can be tried, such as Prilosec OTC. If you have been prescribed an antibiotic to treat H pyloriinfection, finish the full course of medication. Do so even if you begin to feel better sooner. If you stop the medication too soon, the infection can return and be harder to treat. You can use antacids, such as Tums, Rolaids, Mylanta, or Maalox, for pain. This will be useful the first few days after starting acid blockers when the blockers havent started working yet. Follow the directions on the label. Liquid antacids may work better than tablets. Note that antacids can interfere with absorption of certain medications. Specifically, do not take Tagamet (cimetidine), Zantac (ranitidine), or Carafate (sucralfate) within 1 hour of taking an antacid. Talk with your pharmacist if you have any questions. Although foods do not cause an ulcer, symptoms can be worsened by certain foods. Limit or avoid fatty, fried, and spicy foods, as well as coffee, chocolate, mint, and foods with high acid content such as tomatoes and citrus fruit and juices (orange, grapefruit, lemon). Avoid alcohol, caffeine, and tobacco, which can delay healing. Avoid aspirin and anti-inflammatory medications such as ibuprofen (Advil, Motrin) and naproxen (Naprosyn, Aleve). Acetaminophen (Tylenol) is safe to use. Do not take more than the amount listed on the label. Follow Up with your doctor or as advised. Further testing may be needed. If you do not begin to improve over the next 4 days, contact your doctor. If you had tests, youll be notified of any new findings that affect your care. Get Prompt Medical Attention if any of the following occur: Stomach pain gets worse or moves to the lower right abdomen (appendix area) Chest pain appears or gets worse, or spreads to the back, neck, shoulder, or arm Frequent vomiting (cant keep down liquids) Blood in the stool or vomit (red or black in color) Feeling weak or dizzy, fainting, or trouble breathing Fever of 100.4F (38C) or higher, or as directed by your healthcare provider Ondansetron Oral disintegrating tablet What is this medicine? ONDANSETRON (on DEEP se larry) is used to treat nausea and vomiting caused by chemotherapy. It is also used to prevent or treat nausea and vomiting after surgery. How should I use this medicine? These tablets are made to dissolve in the mouth. Do not try to push the tablet through the foil backing. With dry hands, peel away the foil backing and gently remove the tablet. Place the tablet in the mouth and allow it to dissolve, then swallow. While you may take these tablets with water, it is not necessary to do so. Talk to your superintendent marine regarding the use of this medicine in children. Special care may be needed. What side effects may I notice from receiving this medicine? Side effects that you should report to your doctor or health career representative as soon as possible: allergic reactions like skin rash, itching or hives, swelling of the face, lips, or tongue breathing problems dizziness fast or irregular heartbeat feeling faint or lightheaded, falls fever and chills swelling of the hands and feet tightness in the chest Side effects that usually do not require medical attention (report to your doctor or health career representative if they continue or are bothersome): constipation or diarrhea headache What may interact with this medicine? Do not take this medicine with any of the following medications: -apomorphine -cisapride -dofetilide -dronedarone -pimozide -thioridazine -ziprasidone This medicine may also interact with the following medications: -carbamazepine -phenytoin -rifampicin -tramadol -other medicines that prolong the QT interval (cause an abnormal heart rhythm) What if I miss a dose? If you miss a dose, take it as soon as you can. If it is almost time for your next dose, take only that dose. Do not take double or extra doses. Where should I keep my medicine? Keep out of the reach of children. Store between 2 and 30 degrees C (36 and 86 degrees F). Throw away any unused medicine after the expiration date. What should I tell my health care provider before I take this medicine? They need to know if you have any of these conditions: heart disease history of irregular heartbeat liver disease low levels of magnesium or potassium in the blood an unusual or allergic reaction to ondansetron, granisetron, other medicines, foods, dyes, or preservatives or trying to get breast-feeding What should I watch for while using this medicine? Check with your doctor or health career representative as soon as you can if you have any sign of an allergic reaction. Famotidine Oral tablet What is this medicine? FAMOTIDINE (fa PANKAJ nagel) is a type of antihistamine that blocks the release of stomach acid. It is used to treat stomach or intestinal ulcers. It can also relieve heartburn from acid reflux. How should I use this medicine? Take this medicine by mouth with a glass of water. Follow the directions on the prescription label. If you only take this medicine once a day, take it at bedtime. Take your doses at regular intervals. Do not take your medicine more often than directed. Talk to your superintendent marine regarding the use of this medicine in children. Special care may be needed. What side effects may I notice from receiving this medicine? Side effects that you should report to your doctor or health career representative as soon as possible: agitation, nervousness confusion hallucinations skin rash, itching Side effects that usually do not require medical attention (report to your doctor or health career representative if they continue or are bothersome): constipation diarrhea dizziness headache What may interact with this medicine? delavirdine itraconazole ketoconazole What if I miss a dose? If you miss a dose, take it as soon as you can. If it is almost time for your next dose, take only that dose. Do not take double or extra doses. Where should I keep my medicine? Keep out of the reach of children. Store at room temperature between 15 and 30 degrees C (59 and 86 degrees F). Do not freeze. Throw away any unused medicine after the expiration date. What should I tell my health care provider before I take this medicine? They need to know if you have any of these conditions: kidney or liver disease trouble swallowing an unusual or allergic reaction to famotidine, other medicines, foods, dyes, or preservatives or trying to get breast-feeding What should I watch for while using this medicine? Tell your doctor or health career representative if your condition does not start to get better or if it gets worse. Finish the full course of tablets prescribed, even if you feel better. Do not take with aspirin, ibuprofen or other antiinflammatory medicines. These can make your condition worse. Do not smoke cigarettes or drink alcohol. These cause irritation in your stomach and can increase the time it will take for ulcers to heal. If you get black, tarry stools or vomit up what looks like coffee grounds, call your doctor or health career representative at once. You may have a bleeding ulcer. You have been given the following additional information: Abdominal Pain, Unknown Cause, (Female) Gastritis Vs. Ulcer Ondansetron Oral disintegrating tablet Famotidine Oral tablet (Electronically signed by Leonard Weston Dr. 06/29/2016 2:44)
--- NOTE | 2016-06-29 02:44 | ED MED RECONCILIATION SUMMARY ---
Patient: TANIYA AUSTIN Medication Reconciliation Report [facility] VisitID: [id number] [place] [address] 86y, F Registration Date/Time: 06/23/2016 Weight: 68.0 kg Height/Length: 64 in. BMI: 25.8 ALLERGIES: Codeine, Colchicine, GlipiZIDE, HCTZ, LIsinopril, Methotrexate, Sulfa Antibiotics The patient's Home Medications are listed below: CONTINUE TAKING THE FOLLOWING MEDICATIONS: Acetaminophen Oral 325 mg, PRN Allopurinol Oral 200 mg, daily Alphagan P Ophthalmic Antacid Anti-Gas Oral (200-200-20 mg/5mL) 30 ml Atorvastatin Calcium Oral (40 mg), daily Bisac-Evac Rectal (10 mg) Diltiazem HCl Oral 240 mg, daily Gabapentin Oral 100 mg, at bedtime Hydrocodone-Acetaminophen Oral 5 mg Lasix Oral 40 mg, daily Latanoprost Ophthalmic (0.005 %) 1 drop, HS, both eyes Levothyroxine Sodium Oral 112mcg, daily Loperamide HCl Oral 2 mg Loratadine Oral 10 mg, daily Losartan Potassium Oral 100 mg, daily MetFORMIN HCl Oral 500 mg, 2x a day MetFORMIN HCl Oral (500 mg), daily Metoprolol Tartrate Oral 100 mg, 2 times daily Milk of Magnesia Oral 30 ml Omeprazole Oral 20 mg, daily Pepto-Bismol Oral, PRN, liquid or chews PredniSONE Oral 2.5 mg, daily Probiotic Daily Oral Sertraline HCl Oral (100 mg) 1 tablet, daily The source(s) of the original Home Medication information: Not obtained. The following Medications were given to the patient in the Emergency Department: IV NS IV Fluids bolus 0, then 1000 mL/hr, administered: 06/23/2016 10:52:00 PM Zofran [IVP] IVP 4 mg, administered: 06/23/2016 10:51:00 PM GI COCKTAIL WHITE [PO] PO 30 mL, administered: 06/23/2016 11:13:00 PM Pepcid [IVP] IVP 20 mg, administered: 06/23/2016 11:51:00 PM IV NS IV Fluids bolus 0, then 1000 mL/hr, administered: 06/24/2016 12:06:00 AM The following Medications were prescribed to the patient: Zofran (orally disintegrating tablets) 4 mg: take 1 orally every 8 hours as needed for nausea and vomiting. Dispense ten (10). No refill. Substitution is permissible. -- Leonard Weston Dr. Pepcid 20 mg: take 1 orally every 12 hours as needed for indigestion, upset stomach or heartburn. Dispense thirty (30). No refills. Substitution is permissible. -- Leonard Weston Dr.
--- NOTE | 2016-06-29 02:44 | ED ORDER SUMMARY ---
..... Patient: TANIYA AUSTIN OrderSheet [facility] VisitID: [id number] [place] [address] 86y, F Registration Date/Time: 06/23/2016 ORDER SHEET Weight: 68.0 kg (stated) Allergies: Codeine, Colchicine, GlipiZIDE, HCTZ, LIsinopril, Methotrexate, Sulfa Antibiotics GENERAL ORDERS: EKG - ER Stat (22:33 06/23/2016 DDavis R.N. per protocol) (22:44 LMuller) CBC w Diff Urgent (22:45 06/23/2016 Radha Doan) (22:45 DDavis R.N.) CMP Urgent (22:45 06/23/2016 Radha Doan) (22:45 DDavis R.N.) UA-Culture if indicated Urgent (22:45 06/23/2016 Radha Doan) (Ack 22:53 SRecris) (23:13 DDavis R.N.) Lipase Urgent (22:45 06/23/2016 Radha Doan) (22:45 DDavis R.N.) Pulse oximeter (22:45 06/23/2016 Radha Doan) (22:45 DDavis R.N.) CT Abd/Pel wo Cont Urgent (23:23 06/23/2016 Radha Doan) (Ack 23:30 SRedmond) (23:41 RFay) MEDICATION ORDERS: GI Cocktail WHITE PO 30 mL (NOW) (22:45 06/23/2016 Radha Doan) (Ack 22:53 DDavis R.N.) (23:13 DDavis R.N.) IV FLUIDS: IV NS : initial bolus 1000 mL (1000 mL/hr), then none - for X1 (NOW) (22:44 06/23/2016 Radha Doan) (22:52 DDavis R.N.) Zofran IV 4 mg (NOW) (22:44 06/23/2016 Radha Doan) (22:53 DDavis R.N.) Pepcid IV 20 mg/50mL (NOW) (23:27 06/23/2016 Radha Doan) (Ack 23:32 DDavis R.N.) (23:52 DDavis R.N.) IV NS : initial bolus 1000 mL (1000 mL/hr), then none - for X1 (NOW) (00:00 06/24/2016 Radha Doan) (Ack 0:01 DDavis R.N.) (0:06 DDavis R.N.) ORDER SHEET NOTES: [Electronically signed by Gaudencio Julien R.N. (:06/24/2016)] [Electronically signed by Leonard Weston Dr. (02:44 06/29/2016)] [Electronically locked/signed by Gaudencio Julien R.N. (:06/24/2016)]
--- NOTE | 2016-06-29 02:44 | ED MAR SUMMARY ---
..... Medication Administration Record [facility] [address] [place] [address] Patient: TANIYA AUSTIN Visit ID: [id number] 86y, F Weight: 68.0 kg Height/Length: 64 in BMI: 25.8 ALLERGIES: Codeine, Colchicine, GlipiZIDE, HCTZ, LIsinopril, Methotrexate, Sulfa Antibiotics Given 22:51 06/23/2016 Gaudencio Julien R.N. Medication Administered: ZOFRAN [IVP] (ONDANSETRON HCL), Dose: 4 mg IVP over 1 minute(s), Site: #1 left AC. Medication Ordered: Zofran IV 4 mg (NOW). Start 22:52 06/23/2016 Gaudencio Julien R.N., Stop 23:52 06/23/2016 Gaudencio Julien R.N. Medication Administered: IV NS (SALINE), Dose: IV Fluids over 1 hour(s), Rate: 1000 mL/hr, Dispensed: 1000 mL bag, Site: #1 left AC. Medication Ordered: IV NS : initial bolus 1000 mL (1000 mL/hr), then none - for X1 (NOW). Given 23:13 06/23/2016 Gaudencio Julien R.N. Medication Administered: GI COCKTAIL WHITE [PO] (SIMETHICONE), Dose: 30 mL Oral Suspension PO. Medication Ordered: GI Cocktail WHITE PO 30 mL (NOW). Given 23:51 06/23/2016 Gaudencio Julien R.N. Medication Administered: PEPCID [IVP], Dose: 20 mg IVP over 15 minute(s), Site: #1 left AC. Medication Ordered: Pepcid IV 20 mg/50mL (NOW). Start 00:06 06/24/2016 Gaudencio Julien R.N., Stop 01:10 06/24/2016 Gaudencio Julien R.N. Medication Administered: IV NS (SALINE), Dose: IV Fluids over 1 hour(s), Rate: 1000 mL/hr, Dispensed: 1000 mL bag, Site: #1 left AC. Medication Ordered: IV NS : initial bolus 1000 mL (1000 mL/hr), then none - for X1 (NOW).
--- NOTE | 2016-06-29 02:44 | ED CLINICAL REPORT ---
Clinical Report - Physicians/Mid Levels [facility] [address] [place] [address] 06/23/2016 22:28 Patient: TNAIYA AUSTIN Time Seen: 2233; initial patient contact. Arrived- By private vehicle. Historian- patient. HISTORY OF PRESENT ILLNESS Chief Complaint: ABDOMINAL PAIN. This started past few days and is still present. It was gradual in onset and has been waxing/waning but is not gone now. At its maximum, severity described as moderate. When seen in the E.D., severity described as moderate. Modifying factors- worsened by food. Not relieved by anything. It is described as burning. No radiation. It is described as located in the epigastric area. The patient has had nausea, loss of appetite, vomiting and diarrhea. No additional abdominal pain. (started taking an iron supplement for "low blood count." reports dark colored stools recently). Similar symptoms previously: None. Recent medical care: Not recently seen/assessed. REVIEW OF SYSTEMS No constipation, hematemesis, bloody stools or fever. All systems otherwise negative, except as recorded above. PAST HISTORY See nurses notes. Medications: Allopurinol Oral 200 mg, daily. Alphagan P Ophthalmic. Antacid Anti-Gas Oral (Suspension 200-200-20 mg/5mL) 30 ml, as needed. Atorvastatin Calcium Oral (Tablet 40 mg), daily. Bisac-Evac Rectal (Suppository 10 mg), as needed. Diltiazem HCl Oral 240 mg, daily. Gabapentin Oral 100 mg, at bedtime. Hydrocodone-Acetaminophen Oral 5 mg, as needed. Lasix Oral 40 mg, daily. Latanoprost Ophthalmic (Solution 0.005 %) 1 drop, HS (both eyes). Loperamide HCl Oral 2 mg, as needed. Loratadine Oral 10 mg, daily. Losartan Potassium Oral 100 mg, daily. MetFORMIN HCl Oral 500 mg, 2x a day. MetFORMIN HCl Oral (Tablet 500 mg), daily. Metoprolol Tartrate Oral 100 mg, 2 times daily. Milk of Magnesia Oral 30 ml, as needed. Omeprazole Oral 20 mg, daily. Pepto-Bismol Oral, PRN (liquid or chews). PredniSONE Oral 2.5 mg, daily. Probiotic Daily Oral. Sertraline HCl Oral (Tablet 100 mg) 1 tablet, daily. Acetaminophen Oral 325 mg, PRN. Levothyroxine Sodium Oral 112mcg, daily. Allergies: Codeine. Colchicine. GlipiZIDE. HCTZ. LIsinopril. Methotrexate. Sulfa Antibiotics. SOCIAL HISTORY Never smoker. No alcohol use or drug use. No recent travel. Is a local resident. ADDITIONAL NOTES The nursing notes have been reviewed. PHYSICAL EXAM Vital Signs: 06/23/2016 22:29 BP: 136/65. HR: 83. RR: 20. O2 saturation: 98%. Temp: 98.3 F. Pain level now: 5/10. Blood pressure normal. Oxygen saturation normal. Appearance: Alert. Oriented X3. No acute distress. Eyes: Pupils equal, round and reactive to light. Eyes normal inspection. ENT: Ears normal. Nose normal. Pharynx normal. Neck: Normal inspection. Neck supple. CVS: Normal heart rate and rhythm. Heart sounds normal. Pulses normal. Respiratory: No respiratory distress. Breath sounds normal. Chest nontender. Abdomen: Soft and nontender. Bowel sounds normal. No mass. Rectal: Rectal exam normal and nontender. Stool heme negative; hemoccult quality assurance engineer check passed. (POC test reference range: negative). Skin: Skin warm. Normal skin color. No rash. Normal skin turgor. Extremities: Extremities exhibit normal ROM. No lower extremity edema. Neuro: Oriented X 3. No motor deficit. No sensory deficit. LABS, X-RAYS, AND EKG Laboratory Tests: UA-Culture if indicated: (NEFTALY: 06/23/2016 23:05) ( MsgRcvd 06/23/2016 23:19) Final results Test Result Flag Units (Reference) URINE COLOR YELLOW URINE APPEARANCE CLEAR URINE GLUCOSE NEGATIVE (NEGATIVE) URINE BILIRUBIN NEGATIVE (NEGATIVE) URINE KETONE TRACE (NEGATIVE) URINE SPECIFIC GRAVITY >= 1.030 (1.010-1.030) URINE PH 5.5 (5.0-8.0) URINE PROTEIN 3+ (NEGATIVE) URINE UROBILINOGEN 0.2 EU/dL (0.2-1.0) URINE NITRITE NEGATIVE (NEGATIVE) URINE BLOOD 1+ (NEGATIVE) URINE LEUK ESTERASE NEGATIVE (NEGATIVE) URINE RBC 0-1 rbc/hpf (0-1) URINE WBC 0-1 wbc/hpf (0-1) URINE EPITHELIAL CELLS 0-1 EPI/hpf (0-5) URINE BACTERIA NONE SEEN (NONE SEEN) URINE COMMENT CULT NOT INDICATED URINE CULTURES ARE SET-UP BASED ON THE FOLLOWING CRITERIA:POSITIVE NITRITEPOSITIVE LEUKOCYTE ESTERASEGREATER THAN 10 WHITE BLOOD CELLSMODERATE (2+) OR GREATER BACTERIA CBC w Diff: (NEFTALY: 06/23/2016 22:39) ( [facility] 06/23/2016 22:59) Final results Test Result Flag Units (Reference) WHITE BLOOD COUNT 20.5 H K/uL (4.5-11.5) RED BLOOD COUNT 4.37 M/uL (4.00-5.20) HEMOGLOBIN 11.1 L gm/dL (12.0-16.0) HEMATOCRIT 35.4 L % (36.0-46.0) MEAN CELL VOLUME 81 fL (80-100) MEAN CORPUSCULAR HGB 25 L pg (26-34) MEAN CORPUSCULAR HGB CONC 31 g/dL (31-37) RED CELL DISTRIBUTION WIDTH 17.7 H % (11.6-14.8) PLATELET COUNT 367 K/uL (150-400) LYMPH % 10.5 L % (25-40) MONO % 3.6 % (3-14) GRANULOCYTE % 85.9 (53-90) CMP: (NEFTALY: 06/23/2016 22:39) ( [facility] [place] 06/23/2016 23:08) Final results Test Result Flag Units (Reference) GLUCOSE 260 H mg/dL (70-110) BUN 43 H mg/dL (7-18) CREATININE 2.0 H mg/dL (0.6-1.3) Estimated GFR 24.99 mL/min Estimated GFR- 30.29 mL/min Note: Persistent reduction over 3 months in eGFR<60 mL/min/1.73 m2 defines CKD. Patients with eGFR values>=60 mL/min/1.73 m2 may also have CKD if evidence ofpersistent proteinuria. Additional information may be foundat [email or web address].org. SODIUM 143 mmol/L (136-145) POTASSIUM 4.0 mmol/L (3.5-5.1) CHLORIDE 105 mmol/L (98-107) CARBON DIOXIDE 20 L mmol/L (21-32) CALCIUM 9.8 mg/dL (8.5-10.1) TOTAL PROTEIN 7.7 g/dL (6.4-8.2) ALBUMIN 3.7 g/dL (3.3-5.0) BILIRUBIN, TOTAL 0.3 mg/dL (0.0-1.0) ALKALINE PHOSPHATASE 97 U/L (46-116) AST (SGOT) 11 L U/L (15-37) ALT (SGPT) 25 U/L (12-78) LIPASE 285 U/L (73-393) . PROGRESS AND PROCEDURES Course of Care: the patient is a pleasant 86-year-old female presenting for reevaluation of epigastric abdominal pain as well as dark colored stools. Patient is a negative stool guaiac. Patient's symptoms appears to be related to recent supplements foranemia. Patient likely with gastritis versus peptic ulcer disease. Trial of GI cocktail will be given as well as laboratory studies for further evaluation of patient's abdominal pain. If patient does not improve with the medications provided, we'll consider other etiologies for her abdominal pain. Patient's workup was remarkable for the findings above. Patient also had significant improvement with the GI cocktail. Patient had reported that her pain is significantly improved and almost went away completely. Repeat abdominal exam continues to be benign. Because of these findings, do not feel patient requires further emergency department workup/evaluation or admission to the hospital. trial of antacid medication all be recommended. Discussed with patient her workup here in the emergency Department quitting home care, follow-up, and return precautions. All questions have been answered. The patient expressed understanding of these instructions and was agreeable to them. Prior to patient's departure from the emergency department she was reevaluated. Patient reports that the pain had started to return. Feel the pain is likely due to the gastritis from the vitamin supplement. feel the GI cocktails wearing off at this point. Do not feel further emergency department workup/evaluation is needed. Recommended patient follow up with her doctor in regards to her symptoms and possibly referral to gastroenterology if needed. Do not feel patient has a surgical abdomen. Patient's repeat examination of the abdomen continues to be benign. Disposition: Discharged. Condition: good. CLINICAL IMPRESSION Acute epigastric abdominal pain. 06/24/2016 00:12 BP: 157/68. HR: 81. RR: 20. O2 saturation: 96%. Hypertensive. Oxygen saturation normal. Acute gastritis (acute). acute leukocytosis. INSTRUCTIONS (hold iron pill until your pain resolves). Warnings: GENERAL WARNINGS: Return or contact your physician immediately if your condition worsens or changes unexpectedly, if not improving as expected, or if other problems arise. SPECIFICALLY, return if you develop pain, fever, vomiting, the inability to keep fluids down, blood in vomitus, blood in diarrhea, fainting or lightheadedness. Your Current Medications: CONTINUE TAKING THE FOLLOWING MEDICATIONS: Acetaminophen Oral : 325 mg PRN. Allopurinol Oral : 200 mg daily. Alphagan P Ophthalmic. Antacid Anti-Gas Oral : Suspension 200-200-20 mg/5mL, 30 ml, prn. Atorvastatin Calcium Oral : Tablet 40 mg, daily. Bisac-Evac Rectal : Suppository 10 mg, prn. Diltiazem HCl Oral : 240 mg daily. Gabapentin Oral : 100 mg at bedtime. Hydrocodone-Acetaminophen Oral : 5 mg, prn. Lasix Oral : 40 mg daily. Latanoprost Ophthalmic : Solution 0.005 %, 1 drop HS, both eyes. Levothyroxine Sodium Oral : 112mcg daily. Loperamide HCl Oral : 2 mg, prn. Loratadine Oral : 10 mg daily. Losartan Potassium Oral : 100 mg daily. MetFORMIN HCl Oral : 500 mg 2x a day. MetFORMIN HCl Oral : Tablet 500 mg, daily. Metoprolol Tartrate Oral : 100 mg 2 times daily. Milk of Magnesia Oral : 30 ml, prn. Omeprazole Oral : 20 mg daily. Pepto-Bismol Oral : PRN, liquid or chews. PredniSONE Oral : 2.5 mg daily. Probiotic Daily Oral. Sertraline HCl Oral : Tablet 100 mg, 1 tablet daily. Prescription Medications: Zofran (orally disintegrating tablets) 4 mg: take 1 orally every 8 hours as needed for nausea and vomiting. Dispense ten (10). No refill. Substitution is permissible. Pepcid 20 mg: take 1 orally every 12 hours as needed for indigestion, upset stomach or heartburn. Dispense thirty (30). No refills. Substitution is permissible. Follow-up: Return to the emergency department as needed. Follow up with your doctor in three days. Reason for referral: recheck today's concerns. Screening today revealed the patient's blood pressure to be in the normal range. The patient should follow up with a primary care provider for blood pressure management. Understanding of the discharge instructions verbalized by patient. (Electronically signed by Leonard Weston Dr. 06/29/2016 2:44)
--- NOTE | 2016-06-29 02:44 | ED ORDER SUMMARY ---
..... Patient: [facility]UST[facility] Visit[facility]: [id number] [place] [address] 86y, F Registration Date/Time: 06/23/2016 ORDER SHEET Weight: 68.0 kg (stated) Allergies: Codeine, Colchicine, GlipiZIDE, HCTZ, LIsinopril, Methotrexate, Sulfa Antibiotics GENERAL ORDERS: EKG - ER Stat (22:33 06/23/2016 DDavis R.N. per protocol) (22:44 LMuller) CBC w Diff Urgent (22:45 06/23/2016 Radha Doan) (22:45 DDavis R.N.) CMP Urgent (22:45 06/23/2016 Radha Doan) (22:45 DDavis R.N.) UA-Culture if indicated Urgent (22:45 06/23/2016 Radha Doan) (Ack 22:53 SRecris) (23:13 DDavis R.N.) Lipase Urgent (22:45 06/23/2016 Radha Doan) (22:45 DDavis R.N.) Pulse oximeter (22:45 06/23/2016 Radha Doan) (22:45 DDavis R.N.) CT Abd/Pel wo Cont Urgent (23:23 06/23/2016 Radha Doan) (Ack 23:30 SRedmond) (23:41 RFay) MEDICATION ORDERS: GI Cocktail WHITE PO 30 mL (NOW) (22:45 06/23/2016 Radha Doan) (Ack 22:53 DDavis R.N.) (23:13 DDavis R.N.) IV FLUIDS: IV NS : initial bolus 1000 mL (1000 mL/hr), then none - for X1 (NOW) (22:44 06/23/2016 Radha Doan) (22:52 DDavis R.N.) Zofran IV 4 mg (NOW) (22:44 06/23/2016 Radha Doan) (22:53 DDavis R.N.) Pepcid IV 20 mg/50mL (NOW) (23:27 06/23/2016 Radha Doan) (Ack 23:32 DDavis R.N.) (23:52 DDavis R.N.) IV NS : initial bolus 1000 mL (1000 mL/hr), then none - for X1 (NOW) (00:00 06/24/2016 Radha Doan) (Ack 0:01 DDavis R.N.) (0:06 DDavis R.N.) ORDER SHEET NOTES: [Electronically signed by Gaudencio Julien R.N. (:06/24/2016)] [Electronically signed by Leonard Weston Dr. (02:44 06/29/2016)] [Electronically locked/signed by Gaudencio Julien R.N. (:06/24/2016)]
--- NOTE | 2016-06-29 02:44 | ED NURSING NOTES ---
Clinical Report - Nurses [facility] [address] [place] [address] 06/23/2016 22:28 Patient: TANIYA AUSTIN TRIAGE Triage time 22:29. Acuity: LEVEL 3. Chief Complaint: NAUSEA and VOMITING. Alert. --22:37 Gaudencio Julien R.N. 22:29 06/23/16. BP: 136/65. HR: 83. RR: 20 (regular and unlabored). O2 saturation: 98% on room air. Temp: 98.3 F (oral). Pain level now: 07/27. --22:37 Gaudencio Julien R.N. Weight: 68 kg stated. Height/Length: 64 inches Per Patient. BMI: 25.8. --22:29 Gaudencio Julien R.N. Medications Levothyroxine Sodium Oral 112mcg, daily. --22:30 Gaudencio Julien R.N. Acetaminophen Oral 325 mg, PRN. --22:32 Gaudencio Julien R.N. Allopurinol Oral 200 mg, daily. Alphagan P Ophthalmic. Antacid Anti-Gas Oral (Suspension 200-200-20 mg/5mL) 30 ml, as needed. Atorvastatin Calcium Oral (Tablet 40 mg), daily. Bisac-Evac Rectal (Suppository 10 mg), as needed. Diltiazem HCl Oral 240 mg, daily. Gabapentin Oral 100 mg, at bedtime. Hydrocodone-Acetaminophen Oral 5 mg, as needed. Lasix Oral 40 mg, daily. Latanoprost Ophthalmic (Solution 0.005 %) 1 drop, HS (both eyes). Loperamide HCl Oral 2 mg, as needed. Loratadine Oral 10 mg, daily. Losartan Potassium Oral 100 mg, daily. MetFORMIN HCl Oral 500 mg, 2x a day. MetFORMIN HCl Oral (Tablet 500 mg), daily. Metoprolol Tartrate Oral 100 mg, 2 times daily. Milk of Magnesia Oral 30 ml, as needed. Omeprazole Oral 20 mg, daily. Pepto-Bismol Oral, PRN (liquid or chews). PredniSONE Oral 2.5 mg, daily. Probiotic Daily Oral. Sertraline HCl Oral (Tablet 100 mg) 1 tablet, daily. --22:32 Gaudencio Julien R.N. Allergies Codeine. Colchicine. GlipiZIDE. HCTZ. LIsinopril. Methotrexate. Sulfa Antibiotics. --22:29 Gaudencio Julien R.N. History Arrived by EMS. Historian: patient. Unaccompanied. This started today. ( pt states having dark stools for "2 weeks or a month" and states starting iron supplements "a week ago"). She has had nausea, vomiting and diarrhea. SOCIAL HX: Never smoker. No alcohol use or drug use. NUTRITIONAL RISK ASSESSMENT: The nutritional risk assessment revealed no deficiencies. LEARNING NEEDS ASSESSMENT: The learning needs assessment revealed no barriers. FUNCTIONAL ASSESSMENT: Functional assessment performed: requires assistance with the activities of daily living. --22:37 Gaudencio Julien R.N. PROBLEMS: Dehydration. Gastroenteritis. Back Pain. Diabetes Mellitus. Ckd. Meniere's Syndrome. Lichen sclerosus et atrophicus. Anxiety Reaction. Depression. Adenomas. Spinal Stenosis. Nephrolithiasis. Diabetes Mellitus Type 2. Hypertension. Coronary Artery Disease. --22:32 Gaudencio Julien R.N. ADDITIONAL SURGERIES: Cholecystectomy. Sinus Surgery. --22:32 Gaudencio Julien R.N. Interventions ID band on patient. To treatment room. --22:37 Gaudencio Julien R.N. PHYSICAL ASSESSMENT To room via stretcher. Patient gowned. GENERAL / NEURO / PSYCH: Alert. Oriented X 4. Appears anxious. HEENT: Mucous membranes are pink. RESPIRATORY: Respirations not labored. CVS: Capillary refill less than 2 seconds. GI / : Abdomen soft. SKIN: Skin is warm and dry. --22:37 Gaudencio Julien R.N. ( abdominal palpation differred for physician exam). --22:38 Gaudencio Julien R.N. ( Patient states that her nausea has improved.). --23:15 Gaudencio Julien R.N. GENERAL / NEURO / PSYCH: Alert. Oriented X 4. RESPIRATORY: No respiratory distress. Respirations not labored. Breath sounds within normal limits. ( breath sounds are clear). CVS: No abnormal heart sounds. ( no abnormal heart sounds heard on auscultation). Capillary refill less than 2 seconds. SKIN: Skin is warm and dry. --00:09 Gaudencio Julien R.N. NURSING PROGRESS NOTES Pulse oximeter and NIBP monitor placed on patient. Patient gowned. Head of bed elevated. Reassurance given. Two patient identifiers checked. Call light placed in reach. Side rails up x 2. Bed placed in lowest position. Brakes of bed on. Patient ready for evaluation- chart flagged. Patient waiting for evaluation. ( Physician at bedside). --22:38 Gaudencio Julien R.N. 22:34 06/23/2016 Site #1 started via IV in the left antecubital space with an 20g angiocath, with aseptic technique and good blood return; one attempt. Blood drawn: rainbow set. Labeled in the presence of the patient and sent to the lab. Saline lock flushed with saline (Started by SRAVANI Syed). --22:45 Gaudencio Julien R.N. 22:51 06/23/2016 Zofran (Ondansetron HCl) IVP 4 mg given over 1 minute(s) via site #1. Allergies verified and confirmed 5 rights. IV patency established. IV site checked: no pain, redness, or swelling. IV flushed thoroughly pre- and post-medication administration. --22:53 Gaudencio Julien R.N. 22:52 06/23/2016 Started bag #1 1000 mL IV Fluids IV NS (Saline); at 1000 mL/hr over 1 hour(s) via site #1. Allergies verified and confirmed 5 rights. IV patency established. IV site checked: no pain, redness, or swelling. IV flushed thoroughly pre- and post-medication administration. Completed per protocol. --22:53 Gaudencio Julien R.N. EKG time: (2240). EKG was performed by a tech and shown to the ED physician. --23:00 Hortensia Riddle 23:13 06/23/2016 GI COCKTAIL WHITE (Simethicone) PO Oral Suspension 30 mL given. Allergies verified and confirmed 5 rights. --23:13 Gaudencio Julien R.N. 23:51 06/23/2016 Pepcid IVP 20 mg given over 15 minute(s) via site #1. Allergies verified and confirmed 5 rights. IV patency established. IV site checked: no pain, redness, or swelling. IV flushed thoroughly pre- and post-medication administration. --23:52 Gaudencio Julien R.N. 23:52 06/23/2016 IV Fluids IV NS Discontinued: completed. Total amount infused: 1000 mL. IV patency established. IV site checked: no pain, redness, or swelling. IV flushed thoroughly. --01:16 Gaudencio Julien R.N. 00:06 06/24/2016 Started bag #1 1000 mL IV Fluids IV NS (Saline); at 1000 mL/hr over 1 hour(s) via site #1. Allergies verified and confirmed 5 rights. IV patency established. IV site checked: no pain, redness, or swelling. IV flushed thoroughly pre- and post-medication administration. Completed per protocol. --00:06 Gaudencio Julien R.N. 01:10 06/24/2016 IV Fluids IV NS Discontinued: bag #2 discontinued upon discharge. Total amount infused: 700 mL. IV patency established. IV site checked: no pain, redness, or swelling. IV flushed thoroughly. --01:17 Gaudencio Julien R.N. DISPOSITION / DISCHARGE 01:15 06/24/2016 Site #1 removed upon discharge. Manual pressure and bandage applied. --01:17 Gaudencio Julien R.N. Departure time: 01:17. Condition at departure: stable. No learning barriers present. Discharge instructions provided and reviewed with the caregiver and patient. Reviewed warnings. Reviewed medication(s) side effects, precautions, dosing and course information. Prescription(s) given to the patient. Treatments reviewed. Reviewed referrals for followup. Patient verbalized understanding. Written instructions provided in Croatian. Caregiver verbalized understanding. The patient was discharged home and accompanied by caregiver. She left the Emergency Department in a wheelchair and via taxi. Driving (taxi). --01:18 Gaudencio Julien R.N. 01:16 06/24/16. BP: 153/85. HR: 79. RR: 19. O2 saturation: 100%. Pain level now: 10. --01:18 Gaudencio Julien R.N. ( pt and her caregiver state that they are taking a taxi home.). --01:19 Gaudencio Julien R.N. Locked/Released at 06/24/2016 1:19 by Gaudencio Julien R.N.
== END 2016-06-24 01:11 | disposition home or self-care (01) ==
LOC: ED SRH 22:28
DX: K29.00 Acute gastritis without bleeding (principal); D72.829 Elevated white blood cell count, unspecified; R10.13 Epigastric pain; E11.9 Type 2 diabetes mellitus without complications; I10 Essential (primary) hypertension; Z79.899 Other long term (current) drug therapy; F32.9 Major depressive disorder, single episode, unspecified; Z79.84 Long term (current) use of oral hypoglycemic drugs; Z88.5 Allergy status to narcotic agent; Z88.1 Allergy status to other antibiotic agents
CPT/HCPCS: 90004; 90100; 92235; 95059